=== PATIENT | female | born 1995 | race Caucasian/White ===

== ENCOUNTER 2018-03-17 20:09 | Emergency (ER) | END 2018-03-17 22:46 | disposition home or self-care (01) ==

== ENCOUNTER 2018-10-16 17:05 | Inpatient (IN) | payer BC ==
[~2018-10-16] VITALS: Ht 162.6 cm; Wt 91.9 kg
[~2018-10-16 17:05] MED LIST: ACET500C5 PO; CEPH-443 PO
[2018-10-16 17:51] VITALS: Ht 162.6 cm; Wt 91.9 kg
[2018-10-16 17:52] VITALS: BP 124/66; PULSE 81; RESP 18
[2018-10-16] MEDS ORDERED: PREN-99 PO (17:56)
[2018-10-16] MEDS ORDERED: CARBOPROST 250 MCG INJ IM PRN (18:30)
[2018-10-16] MEDS ORDERED: LIDOCAINE 1% (MPF) 30 ML INJ INJ PRN (18:30)
[2018-10-16] MEDS ORDERED: BUTORPHANOL 2 MG INJ IV PRN ×2 (18:30)
[2018-10-16] MEDS ORDERED: METHYLERGONOVINE 0.2 MG INJ IM PRN (18:30)
[2018-10-16] MEDS ORDERED: OXYTOCIN 30 UNITS/LR 500 ML IV PRN (18:30)
[2018-10-16] MEDS ORDERED: MISOPROSTOL 200 MCG TAB PR PRN (18:30)
[2018-10-16] MEDS ORDERED: OXYTOCIN 30 UNITS/LR 500 ML IV SCH ×2 (18:30)
[2018-10-16] MEDS ORDERED: IBUPROFEN 600 MG TAB PO PRN (18:30)
[2018-10-16] MEDS: LACTATED RINGER'S 1,000 ML IV SCH (20:46)
[2018-10-16] MEDS ORDERED: AMPICILLIN 2 GM/NS (PMX) 100 ML ONE (20:51)
[2018-10-16] MEDS ORDERED: AMPICILLIN 2 GM/NS (PMX) 100 ML IV ONE (21:00)
--- NOTE | 2018-10-16 21:23 | TRIAGE ---
OB Triage Datetime Report Generated by CPN: 10/16/2018 18:19 Datetime: 10/16/2018 18:02 Vaginal Exam Dilatation (cms): 1.5 Effacement (%): 40 Station: -3 Exam By: AO Cervix, Position: Posterior Datetime: 10/16/2018 17:58 Stage of : OB Triage Assessment Type: Triage Maternal Assessment Level of Consciousness: Keenly Alert, Responsive DTR's/Clonus: DTRs 2+; No Clonus Headache: Denies Blurred Vision: No Respiratory Effort: Unlabored; Regular Rhythm; Equal Expansion Breath Sounds, Left: Clear and Equal Breath Sounds, Right: Clear and Equal Nausea/Vomiting: Denies RUQ Epigastric Pain: Denies Lower Extremities Edema: None Degree: None Upper Extremities Edema: None Degree: None Facial Edema: None Temperature Route: Oral Fall Risk Assessment History of Falling: (0) No Secondary Diagnosis: (0) No Ambulatory Aid: (0) Bedrest/Nurse Assist IV Therapy: (0) No Gait: (0) Normal/Bedrest/Immobile Mental Status: (0) Oriented to Own Ability Fall Score: 0 Fall Risk Score Definition: No Risk: No action required Labor Evaluation Frequency: 4-4.5 Monitor Mode: External Duration (sec)2399: 40-70 Quality: Mild Pattern: Normal: <= 5 Contractions in 10 Minutes Resting Tone [place]: Relaxed Heart Rate FHR Baseline Rate: 130 Monitor Mode: External US FHR Baseline Changes: No Baseline Change Variability: Moderate 6-25 bpm Accelerations: 15X15 Decelerations: None Category: Category I Pain Assessment Pain Scale: 10 Pain Presence: Intermittent Pain Type: Contraction Pain Location: Abdomen Datetime: 10/16/2018 17:57 EGA: 40.0 Datetime: 10/16/2018 17:56 Time of Arrival: 10/16/2018 16:57 Arrived By: Ambulatory Arrived From: Home Chief Complaint: UCs Movement: Present Contractions: Regular Contractions: 5 Rupture of Membranes: Denies Vaginal Bleeding: None Vaginal Discharge: Present Recent Sexual Intercouse: Denies Abdominal Trauma: Not Applicable Patient Complaints: Contractions Time Provider Notified: 10/16/2018 18:07 Provider Notified: Dr Vieyra Initial Plan: SUSSY
[2018-10-17] MEDS: AMPICILLIN 1 GM/NS (PMX) 50 ML IV SCH ×4 (01:05→13:02)
[2018-10-17] MEDS: LACTATED RINGER'S 1,000 ML IV SCH ×3 (04:03→13:06)
[2018-10-17] MEDS ORDERED: FENTAnyl 2MCG/ML-ROPIV 0.2% 100 ML ONE (05:39)
--- NOTE | 2018-10-17 05:43 | PREAC ---
Date/Time of Note Date/Time of Note DATE: 10/17/18 TIME: 05:42 Anesthesia Eval and Record Evaluation Time Pre-Procedure Interview DATE: 10/17/18 TIME: 05:42 Age 23 Sex female NPO: 8 hrs Preoperative diagnosis Labor Pain Planned procedure Labor Epidural Past Medical History Past Medical History: Includes Heme: Anemia : : (1), Para: (0), Gestational age: (40) Surgery & Anesthesia Issues No known issue Meds Anticoagulation: No Beta Domonique within 24 hr: No Reason Beta Domonique not given: Pt. not on B-Domonique Active Scripts Cephalexin* (Keflex*) 500 Mg Capsule, 500 MG PO BID for 7 Days, CAP Prov:TRISH EVANS PA-C 03/17/18 Acetaminophen* (Tylophen*) 500 Mg Capsule, 1 CAP PO Q6H PRN for PAIN AND OR ELEVATED TEMP, #20 CAP Prov:TRISH EVANS PA-C 03/17/18 Reported Medications Vit #76/Iron,Carb/FA (Pnv 29-1 Tablet) 1 Each Tablet, 1 EACH PO DAILY, TAB 10/16/18 Current Medications Lactated Ringer's 1,000 ml @ 125 mls/hr Q8H IV Last administered on 10/17/18at 05:08; Admin Dose 125 MLS/HR; Start 10/16/18 at 18:17 Butorphanol Tartrate (Stadol) 1 mg Q2H PRN IV .PAIN SCALE 1-5; Start 10/16/18 at 18:30 Butorphanol Tartrate (Stadol) 2 mg Q2H PRN IV .PAIN SCALE 6-10; Start 10/16/18 at 18:30 Lidocaine (Xylocaine 1% (Mpf)) 30 ml ONCE PRN INJ .EPISIOTOMY; Start 10/16/18 at 18:30 Oxytocin/Lactated Ringer's 500 ml @ 500 mls/hr ONCE POST IV ; Start 10/16/18 at 18:30 Oxytocin/Lactated Ringer's 500 ml @ 125 mls/hr POST IV ; Start 10/16/18 at 18:30 Ibuprofen (Motrin) 600 mg ONCE PRN PO .PAIN 1-5; Start 10/16/18 at 18:30 Oxytocin/Lactated Ringer's 500 ml @ 0 mls/hr ONCE PRN IV .VAGINAL BLEEDING; Start 10/16/18 at 18:30 Methylergonovine Maleate (Methergine) 0.2 mg ONCE PRN IM .VAGINAL BLEEDING; Start 10/16/18 at 18:30 Carboprost Tromethamine (Hemabate) 250 mcg ONCE PRN IM .VAGINAL BLEEDING; Start 10/16/18 at 18:30 Misoprostol (Cytotec) 1,000 mcg ONCE PRN CA .VAGINAL BLEEDING; Start 10/16/18 at 18:30 Ampicillin 50 ml @ 100 mls/hr Q4H IV Last administered on 10/17/18at 05:08; Admin Dose 100 MLS/HR; Start 10/17/18 at 01:00 Meds reviewed: Yes Allergies Coded Allergies: No Known Allergy (Unverified , 11/01/13) Allergies Reviewed: Yes Labs/Studies Labs Reviewed: Reviewed by anesthesiologist Result Diagram: 10/16/181999 Laboratory Tests 10/16/18 20:00 Blood Bank Test 10/16/18 20:00 Antibody Screen NEGATIVE Blood Type B POSITIVE Rh Immune Globulin Candidate NO test: Positive Studies: ECG (n/a), CXR (n/a) Pre-procedure Exam Last vitals Vital Signs Date Temp Pulse Resp B/P (MAP) Pulse Ox O2 O2 Flow FiO2 Time Delivery Rate 10/16/18 98.3 81 18 124/66 17:52 (85) Airway: Adequate mouth opening, Adequate thyromental dist Mallampati: Mallampati II Teeth: Normal Lung: Normal Heart: Normal ASA Physical Status ASA physical status: 2 Emergency: None Planned Anesthetic Neuraxial: Epidural Planned Pain Management Epidural Pre-operative Attestations Prior to commencing anesthesia and surgery, the patient was re-evaluated, there was verification of: *The patient's identity *The results of appropriate recent lab work and preoperative vital signs *The above evaluation not changing prior to induction *Anesthetic plan, risk benefits, alternative and complications discussed with patient/family; questions answered; patient/family understands, accepts and wishes to proceed. CITLALY CARRERA MD Oct 17, 2018 05:43
[2018-10-17] MEDS ORDERED: NALOXONE (0.4 MG/ML) INJ IV PRN (06:00)
[2018-10-17] MEDS ORDERED: FENTAnyl 2MCG/ML-ROPIV 0.2% 100 ML BAG EPI SCH (06:00)
--- NOTE | 2018-10-17 06:11 | PAC ---
Date/Time of Note Date/Time of Note DATE: 10/17/18 TIME: 06:10 Post-Anesthesia Notes Post-Anesthesia Note Last documented vital signs Vital Signs Date Temp Pulse Resp B/P (MAP) Pulse Ox O2 O2 Flow FiO2 Time Delivery Rate 10/17/18 98.3 81 18 124/66 100 05:52 (85) Activity: WNL Respiratory function: WNL Cardiovascular function: WNL Mental status: Baseline Pain reasonably controlled: Yes Hydration appropriate: Yes Nausea/Vomiting absent: Yes CITLALY CARRERA MD Oct 17, 2018 06:11
[2018-10-17] MEDS ORDERED: ONDANSETRON 4 MG INJ ONE (07:32)
[2018-10-17] MEDS ORDERED: ONDANSETRON 4 MG INJ IV PRN ×2 (07:35→16:00)
[2018-10-17] MEDS ORDERED: OXYTOCIN 30 UNITS/LR 500 ML IV SCH ×2 (08:00→15:51)
--- NOTE | 2018-10-17 11:23 | HP ---
Date/Time of Note Date/Time of Note DATE: 10/17/18 TIME: 11:21 OB - History Hx of Present Free Text/Dictation 23 years old P0000 at 40 weeks in labor GBS positive SVR 9/80%-2 AROM clear FH reassuring Plan Routine intrapartum care pit Epidural PCN Last Menstrual Period: Jan 09, 2019 Estimated Due Date: Oct 16, 2018 : 1 Para: 0 Care: Good Care Ultrasounds: Normal mid trimester US Obstetrical Complications: None Past Family/Social History * Past Medical, Surgical, Family and Obstetric Histories reviewed from chart. OB Admission Exam Vital Signs Vital Signs Vital Signs Date Temp Pulse Resp B/P (MAP) Pulse Ox O2 O2 Flow FiO2 Time Delivery Rate 10/16/18 98.3 81 18 124/66 17:52 (85) Last 72 hours Lab Results CBC & BMP 10/16/18 20:00 BRENDON PANTOJA M.D. Oct 17, 2018 11:23
[2018-10-17] MEDS ORDERED: MINERAL OIL LIGHT 10 ML VIAL TOP ONE (15:30)
--- NOTE | 2018-10-17 15:56 | LDN ---
Date/Time of Note Date/Time of Note DATE: 10/17/18 TIME: 15:53 Delivery Summary pt fully dilated pushed to deliver a viable baby girl 9/9/ after median episiotomy. Nose and mouth were suctionedn cord clamped and cut. Infant handed to nurse. Cord blood collected placenta removed spontanously. 2 degree perineal LAC repaired using 2-0 chromic EBL 400 cc Weeks of Gestation 40 Placenta Delivered: Spontaneously Meconium: none Episiotomy: Yes Indication for episiotomy tight perineum pt exhaustion Perineal laceration: 2 Anesthesia type: Epidural Estimated blood loss: 400 Sponge & Needle done & correct: Yes All needle counts correct: Yes Any foreign bodies felt in the: No BRENDON PANTOJA M.D. Oct 17, 2018 15:56
[2018-10-17] MEDS ORDERED: LANOLIN HPA 1 PKT TOP PRN (16:00)
[2018-10-17] MEDS ORDERED: OXYCODONE/ASPIRIN (4.88/325) TAB PO PRN (16:00)
[2018-10-17] MEDS ORDERED: OXYTOCIN 30 UNITS/LR 500 ML IV PRN (16:00)
[2018-10-17] MEDS ORDERED: MISOPROSTOL 200 MCG TAB PR PRN (16:00)
[2018-10-17] MEDS ORDERED: METHYLERGONOVINE 0.2 MG INJ IM PRN (16:00)
[2018-10-17] MEDS ORDERED: NACL 0.9% 3 ML SYG IV SCH (16:00)
[2018-10-17] MEDS ORDERED: CARBOPROST 250 MCG INJ IM PRN (16:00)
[2018-10-17] MEDS: IBUPROFEN 600 MG TAB PO SCH ×2 (17:10→23:46)
[2018-10-17 17:35] VITALS: BP 112/58; PULSE 80; RESP 18
[2018-10-17 18:34] VITALS: BP 117/57; PULSE 100; RESP 18
[2018-10-17 20:00] VITALS: BP 114/53; PULSE 82; RESP 19
[2018-10-17] MEDS: SENNA/DOCUSATE NA (8.6MG/50MG) TAB PO SCH (21:11)
[2018-10-17] MEDS: WITCH HAZEL/GLYCERIN PAD PR PRN (21:11)
[2018-10-17] MEDS: OXYCODONE/ASPIRIN (4.88/325) TAB PO PRN (21:12)
[2018-10-18] MEDS: LACTATED RINGER'S 1,000 ML IV SCH (02:17)
[2018-10-18 03:40] VITALS: BP 90/45; PULSE 78; RESP 20
[2018-10-18] MEDS: IBUPROFEN 600 MG TAB PO SCH ×3 (05:33→18:05)
[2018-10-18 08:00] VITALS: BP 83/48; PULSE 80; RESP 19
[2018-10-18] MEDS: SENNA/DOCUSATE NA (8.6MG/50MG) TAB PO SCH ×2 (10:45→21:35)
--- NOTE | 2018-10-18 11:17 | DS ---
Date/Time of Note Date/Time of Note DATE: 10/18/18 TIME: 11:16 Discharge Summary Admission/Discharge Info Admit Date/Time Oct 16, 2018 at 18:01 Discharge Date/Time 10/19/18 Discharge Diagnosis Patient Condition: Good Procedures Hx of Present Illness pt arrived in labor two days ago s/p yesterday today feeling well VSS will be d/c home tomorrow Hospital Course As above Home Meds Active Scripts Cephalexin* (Keflex*) 500 Mg Capsule, 500 MG PO BID for 7 Days, CAP Prov:TRISH EVANS PA-C 03/17/18 Acetaminophen* (Tylophen*) 500 Mg Capsule, 1 CAP PO Q6H PRN for PAIN AND OR ELEVATED TEMP, #20 CAP Prov:TRISH EVANS PA-C 03/17/18 Reported Medications Vit #76/Iron,Carb/FA (Pnv 29-1 Tablet) 1 Each Tablet, 1 EACH PO DAILY, TAB 10/16/18 Follow-up Plan rtc 6 weeks Primary Care Provider Not On Staff Doctor Pending Labs Laboratory Tests Test 10/18/18 06:54 White Blood Count 12.9 10^3/ul (4.8-10.8) Red Blood Count 4.11 10^6/ul (4.20-5.40) Hemoglobin 11.3 g/dl (12.0-16.0) Hematocrit 35.8 % (37.0-47.0) Mean Corpuscular Volume 87.1 fl (82.0-101.0) Mean Corpuscular Hemoglobin 27.5 pg (29.0-33.0) Mean Corpuscular Hemoglobin Concent 31.6 g/dl (32.0-37.0) Red Cell Distribution Width 14.5 % (11.5-14.5) Platelet Count 168 10^3/UL (140-415) Mean Platelet Volume 11.8 fl (7.4-10.4) Immature Granulocytes % 1.900 % (0.001-0.429) Neutrophils % 63.8 % (39.0-77.0) Lymphocytes % 27.0 % (15.0-51.0) Monocytes % 6.4 % (0.0-11.0) Eosinophils % 0.7 % (0.0-7.0) Basophils % 0.2 % (0.0-2.0) Nucleated Red Blood Cells % 0.0 /100WBC (0.0-0.0) Immature Granulocytes # 0.250 10^3/ul (0.0-0.031) Neutrophils # 8.2 10^3/ul (1.6-7.5) Lymphocytes # 3.5 10^3/ul (0.8-2.9) Monocytes # 0.8 10^3/ul (0.3-0.9) Eosinophils # 0.1 10^3/ul (0.0-0.5) Basophils # 0.0 10^3/ul (0.0-0.1) Nucleated Red Blood Cells # 0.0 10^3/ul (0.0-0.0) BRENDON PANTOJA M.D. Oct 18, 2018 11:17
[2018-10-18] MEDS ORDERED: BENZOCAINE 20% 56 ML SPRAY TOP PRN (15:30)
[2018-10-18] MEDS ORDERED: DIBUCAINE 1% 30 GM OINT TOP PRN (15:30)
[2018-10-18 16:00] VITALS: BP 123/71; PULSE 82; RESP 20
[2018-10-18] MEDS: WITCH HAZEL/GLYCERIN PAD PR PRN (16:16)
[2018-10-18 20:05] VITALS: BP 130/76; PULSE 80; RESP 18
[2018-10-18] MEDS: OXYCODONE/ASPIRIN (4.88/325) TAB PO PRN (21:41)
[2018-10-19] MEDS: IBUPROFEN 600 MG TAB PO SCH ×3 (00:08→11:51)
[2018-10-19 04:15] VITALS: BP 125/80; PULSE 88; RESP 18
[2018-10-19 08:00] VITALS: BP 117/80; PULSE 80; RESP 18
[2018-10-19] MEDS: SENNA/DOCUSATE NA (8.6MG/50MG) TAB PO SCH (08:25)
--- NOTE | 2018-10-20 13:05 | DELSUM ---
Delivery Summary A-C Datetime Report Generated by CPN: 10/20/2018 13:05 DELIVERY PERSONNEL Recessing Machine Operator: Elba Holland MATERNAL INFORMATION Delivery Anesthesia: Epidural Medications in Delivery: LR WITH 30 UNITS PITOCIN Delivery QBL (ml): 400 Placenta Cultured: No Maternal Complications: None Other Maternal Complications: POST DATE LABOR SUMMARY EDC: 10/16/2018 00:00 No. Babies in Womb: 1 Attempted: No Labor Anesthesia: Epidural LABOR INFORMATION Reason for Induction: Postterm Onset of Labor: 10/17/2018 05:56 Complete Dilatation: 10/17/2018 12:30 Group B Beta Strep: Positive Antibiotics # of Doses: 7 Antibiotics Time of Last Dose: 10/17/2018 13:00 Steroids Given: None Reason Steroids Not Administered: Not Applicable MEMBRANES Membranes Rupture Method: Artificial Rupture of Membranes: 10/17/2018 11:16 Length of Rupture (hr): 4.12 Amniotic Fluid Color: Clear Amniotic Fluid Amount: Small Amniotic Fluid Odor: Normal STAGES OF LABOR Stage 1 hr: 6 Stage 1 min: 34 Stage 2 hr: 2 Stage 2 min: 53 Stage 3 hr: 0 Stage 3 min: 1 Total Time in Labor hr: 9 Total Time in Labor min: 28 VAGINAL DELIVERY Episiotomy: Median Laceration Extension: Second Degree Laceration Type: Perineal Laceration Repair: Yes Initial Vag Sponge Count: 20 Final Vag Sponge Count: 20 Initial Vag Sharps Count: 6 Final Vag Sharps Count: 6 Sponge Count Correct: Yes Sharps Count Correct: Yes BABY A INFORMATION Infant Delivery Date/Time: 10/17/2018 15:23 Method of Delivery: Vaginal Born in Route : No : N/A Forceps: N/A Vacuum Extraction: N/A Shoulder Dystocia : No SHOULDER DYSTOCIA BABY A Delivery Date/Time: 10/17/2018 15:23 PRESENTATION/POSITION BABY A Presentation: Cephalic Cephalic Presentation: Vertex Vertex Position: Left Occipital Anterior Breech Presentation: N/A PLACENTA INFORMATION BABY A Placenta Delivery Time : 10/17/2018 15:24 Placenta Method of Delivery: Spontaneous Placenta Status: Delivered SCORES BABY A Heart Rate 1 min: >100 bpm Resp Effort 1 min: Good Cry Reflex Irritability 1 min: Cough/Sneeze/Pulls Away Muscle Tone 1 min: Active Motion Color 1 min: Body Tatum, Extremit Blue Resuscitation Effort 1 min: Tactile Stimulation SCORE 1 MIN: 9 Heart Rate 5 min: >100 bpm Resp Effort 5 min: Good Cry Reflex Irritability 5 min: Cough/Sneeze/Pulls Away Muscle Tone 5 min: Active Motion Color 5 min: Body Tatum, Extremit Blue Resuscitation Effort 5 min: Tactile Stimulation SCORE 5 MIN: 9 INFANT INFORMATION BABY A Gestational Age at Delivery: 40.1 Gestational Status: Full Term- 39- 40.6 Weeks Outcome : Liveborn, with signs of life Infant Condition : Stable Sex: Female IDENTIFICATION/MEDS BABY A ID Band Number: [id number] ID Band Location: Right Leg; Left Arm Sensor Applied: Yes Sensor Number: [id number] Sensor Location : Cord Clamp Vitamin K Given : Not Given Erythromycin Given: Not Given WEIGHT/LENGTH BABY A Infant Birthweight (gm): 3720 Infant Weight (lb): 8 Infant Weight (oz): 3 Infant Length (in): 19.50 Length (cm): 49.53 CORD INFORMATION BABY A No. Cord Vessels: 3 Nuchal Cord : N/A Cord Blood Taken: Yes Suction: Mouth; Nose ASSESSMENT BABY A Infant Complications: None Physical Findings at Delivery: Within Normal Limits Infant Respirations: Appears Normal Deputy Of Counter Intelligence/ALS Called : Yes Infant Care By: rt Transferred To: Remains with Mother
== END 2018-10-19 13:05 | disposition home or self-care (01) | DRG 807 ==
LOC: OBT 17:05 → L-D 17:07 → OBT 18:01 → L-D 18:01 → PP1 10-17 17:41
PROVIDERS: ADMIT Obstetrics & Gynecology; ATTEND Obstetrics & Gynecology
PROC: 10E0XZZ Delivery of Products of Conception, External Approach (ICD-10-PCS; principal; 2018-10-17)
PROC: 0KQM0ZZ Repair Perineum Muscle, Open Approach (ICD-10-PCS; 2018-10-17)
PROC: 0W8NXZZ Division of Female Perineum, External Approach (ICD-10-PCS; 2018-10-17)
DX: O99.824 Streptococcus B carrier state complicating childbirth (principal); O70.1 Second degree perineal laceration during delivery; Z3A.40 40 weeks gestation of pregnancy; Z37.0 Single live birth
CPT/HCPCS: 62322; 85025; 85610; 85730; 86592; 86850; 86900; 86901; 87340; 99464; G0463; J0290; J0595; J2405; J2590; J3010; J7120